=== PATIENT | female | born 1955 | race Caucasian/White ===

== ENCOUNTER 2016-08-02 11:00 | Inpatient (IN) | payer OTHER ==
[~2016-08-02] VITALS: Ht 149.9 cm; Wt 62.6 kg
[2016-08-02] MEDS ORDERED: MAGNEVIST 15ML IV ONE (11:01)
[2016-08-02] MEDS ORDERED: ASPIRIN 81 MG CHEW TAB ONE (14:28)
[2016-08-02] MEDS ORDERED: ACETAMINOPHEN 325 MG TAB ONE (14:40)
[2016-08-02] MEDS ORDERED: SALINE FLUSH 10 ML FLUSH PRN (15:10)
[2016-08-02] MEDS ORDERED: ACETAMINOPHEN 325 MG TAB PO PRN (15:10)
[2016-08-02 17:56] VITALS: BP_SYST 115; RESP 16; TEMP 98.6
[2016-08-02 17:58] VITALS: Ht 149.9 cm; Wt 62.6 kg
[2016-08-02] MEDS: NICOTINE 14 MG/24 HR TDSY TRANSDERM SCH (20:31)
[2016-08-02] MEDS: SALINE FLUSH 10 ML FLUSH SCH (20:32)
[2016-08-02] MEDS: CLOPIDOGREL 75 MG TAB PO SCH (20:32)
[2016-08-02] MEDS ORDERED: Atorvastatin 40 MG TAB PO SCH (21:00)
[2016-08-02 23:32] VITALS: BP_SYST 121; RESP 16; TEMP 98.2
[2016-08-03 03:15] VITALS: BP_SYST 108; RESP 16; TEMP 97.6
[2016-08-03] MEDS ORDERED: SODIUM CHLORIDE 0.9% FLUSH BAG 500 ML IV SCH (06:00)
[2016-08-03] MEDS ORDERED: Aspirin 325 MG TAB PO SCH (09:00)
[2016-08-03] MEDS ORDERED: ENOXAPARIN 40 MG/0.4 ML SYR SUBQ SCH (09:00)
[2016-08-03 09:04] VITALS: BP_SYST 126; RESP 16; TEMP 98.3
[2016-08-03] MEDS: SALINE FLUSH 10 ML FLUSH SCH (09:51)
[2016-08-03] MEDS: CLOPIDOGREL 75 MG TAB PO SCH (09:51)
[2016-08-03] MEDS: NICOTINE 14 MG/24 HR TDSY TRANSDERM SCH (09:51)
[2016-08-03 11:40] VITALS: BP_SYST 126; RESP 16; TEMP 98.3
[2016-08-03 11:58] VITALS: BP_SYST 114; RESP 18; TEMP 98.4
== END 2016-08-03 12:22 | disposition home or self-care (01) | DRG 65 ==
LOC: ENRESERVTM → ENRESERVDT → ER 11:00 → EMR 15:21 → ENPENDDIS 15:21 → PCU 17:37
PROVIDERS: ADMIT Internal Medicine; ATTEND Internal Medicine
DX: I63.232 Cerebral infarction due to unspecified occlusion or stenosis of left carotid arteries (principal); I69.351 Hemiplegia and hemiparesis following cerebral infarction affecting right dominant side; I10 Essential (primary) hypertension; I25.10 Atherosclerotic heart disease of native coronary artery without angina pectoris; Z72.0 Tobacco use; E78.5 Hyperlipidemia, unspecified; Z82.3 Family history of stroke; Z79.82 Long term (current) use of aspirin
CPT/HCPCS: 36415; 70544; 70548; 70553; 80048; 80061; 83036; 84439; 84443; 85025; 85610; 85730; 93005; 93306; 99223; 99238